=== PATIENT | male | born 1965 ===

== ENCOUNTER 2022-10-10 12:10 | Outpatient (REF) | payer MEDICARE, MEDICAID, SELFPAY ==
[2022-10-10 15:08] LABS: Alanine Aminotransferase 10 U/L (0-40); Albumin Level 4.3 g/dL (3.5-5.0); Alkaline Phosphatase 106 U/L (39-117); Anion Gap 14 (12-20); Aspartate Amino Transferase 13 U/L (5-37); Bilirubin Total 0.3 mg/dL (0.0-1.0); Blood Urea Nitrogen 7 mg/dL (9-16); Calcium 9.6 mg/dL (8.4-10.2); Carbon Dioxide 24 mmol/L (22-29); Chloride 104 mmol/L (96-108); Cholesterol 186 mg/dL; Estimated Glomerular Filt Rate > 60; Glucose Random 188 mg/dL (60-115); HDL Cholesterol 36 mg/dL; LDL Cholesterol Calculated 121 mg/dl; Potassium 4.5 mmol/L (3.3-5.1); Sodium 137 mmol/L (135-145); Total Protein 7.7 g/dL (6.5-8.0); Triglycerides 146 mg/dL
== END 2022-10-10 12:11 | disposition home or self-care (01) ==
LOC: HO.HHCL 12:10
PROVIDERS: Visit Provider Registered Nurse
DX: E78.5 Hyperlipidemia, unspecified (principal); E11.69 Type 2 diabetes mellitus with other specified complication; Z79.4 Long term (current) use of insulin
CPT/HCPCS: 36415; 80053; 80061

== ENCOUNTER 2023-05-14 14:11 | Outpatient (REF) | payer MEDICARE, MEDICAID, SELFPAY ==
[2023-05-14 16:29] LABS: Lithium 0.47 mmol/L (0.60-1.20)
[2023-05-14 16:33] LABS: Blood Urea Nitrogen 7 mg/dL (9-16); Estimated Glomerular Filt Rate > 60
[2023-05-14 16:51] LABS: TSH reflex Free T4 2.21 uIU/mL (0.32-4.0)
== END 2023-05-14 14:12 | disposition home or self-care (01) ==
LOC: HO.HHCL 14:11
PROVIDERS: Visit Provider Nurse Practitioner Family
DX: F31.9 Bipolar disorder, unspecified (principal)
CPT/HCPCS: 36415; 80178; 82565; 84443; 84520

== ENCOUNTER 2023-12-28 12:54 | Outpatient (REF) | payer MEDICARE, MEDICAID, SELFPAY ==
[2023-12-28 16:46] LABS: Hematocrit 37.7 % (42.0-52.0); Hemoglobin 12.5 g/dl (14.0-18.0); Mean Corpuscular HGB Conc 33.2 g/dl (31.0-36.0); Mean Corpuscular Hemoglobin 30.2 pg (27.0-33.0); Mean Corpuscular Volume 91.1 fL (80.0-98.0); Mean Platelet Volume 9.2 fL (9.4-12.4); Platelet Count 319 X10*3/uL (160-400); Red Blood Count 4.14 X10*6/uL (4.60-5.80); Red Cell Distribution Width 12.4 % (11.0-16.0); White Blood Count 11.4 X10*3/uL (4.8-10.8)
[2023-12-28 17:12] LABS: Lithium 0.62 mmol/L (0.60-1.20)
[2023-12-28 17:16] LABS: Estimated Average Glucose 148 mg/dL; Hemoglobin A1C 167.3834 umol/L; Hemoglobin A1c % 6.8 % (<6.0); Total Hemoglobin (HGBA1C) 3286.8693 umol/L
[2023-12-28 17:17] LABS: Alanine Aminotransferase 16 U/L (0-40); Albumin Level 4.3 g/dL (3.5-5.0); Alkaline Phosphatase 113 U/L (39-117); Anion Gap 11 (12-20); Aspartate Amino Transferase 38 U/L (5-37); Bilirubin Total 0.5 mg/dL (0.0-1.0); Blood Urea Nitrogen 11 mg/dL (9-16); Calcium 9.3 mg/dL (8.4-10.2); Carbon Dioxide 25 mmol/L (22-29); Chloride 103 mmol/L (96-108); Cholesterol 201 mg/dL (<200); Estimated Glomerular Filt Rate > 60; Glucose Random 238 mg/dL (60-115); HDL Cholesterol 39 mg/dL (>40); LDL Cholesterol Calculated 124 mg/dL (<100); Potassium 4.2 mmol/L (3.3-5.1); Sodium 135 mmol/L (135-145); Total Protein 7.6 g/dL (6.5-8.0); Triglycerides 192 mg/dL (<150)
[2023-12-28 17:20] LABS: TSH reflex Free T4 1.18 uIU/mL (0.32-4.0)
[2023-12-28 17:36] LABS: Folate 8.4 ng/mL (> or = 4.0); Prostate Specific Antigen 1.33 ng/mL (<0.05-4.0); Vitamin B12 352 pg/mL (200-900)
[2023-12-29 03:53] LABS: Syphilis Screen Nonreactive (Nonreactive)
[2023-12-29 04:09] LABS: HBc Num1 4.09 S/CO (0.00-0.79); HBsAGNum1 0.46 S/CO (0.00-0.99); Hepatitis B Surface Antigen Negative (Negative)
[2023-12-29 04:40] LABS: HIV AB/AG Nonreactive (Nonreactive); HIV Num 1 0.05 S/CO (0.00-0.99); ~HepC Num1 10.86 S/CO (0.00-0.79); ~Hepatitis C Antibody Reactive (Nonreactive)
[2023-12-29 10:55] LABS: HBS Num1 65.37 mIU/mL (0-7.99); ~Hepatitis B Surface Antibody REACTIVE (Nonreactive)
[2023-12-29 11:13] LABS: HBc Num2 4.14 S/CO; HBc Num3 4.14 S/CO; Hepatitis B Core Antibody Reactive (Nonreactive)
[2023-12-31 05:53] LABS: HCV Log PCR <1.18 NOT DETECTED Log IU/mL (NOT DETECTED); HepC Viral Load <15 NOT DETECTED IU/mL (NOT DETECTED)
== END 2023-12-28 12:55 | disposition home or self-care (01) ==
LOC: HO.HHCL 12:54
PROVIDERS: Visit Provider Student in an Organized Health Care Education/Training Program
DX: Z00.00 Encounter for general adult medical examination without abnormal findings (principal); Z11.59 Encounter for screening for other viral diseases; F31.9 Bipolar disorder, unspecified; Z12.5 Encounter for screening for malignant neoplasm of prostate; Z13.1 Encounter for screening for diabetes mellitus; Z72.89 Other problems related to lifestyle
CPT/HCPCS: 36415; 80053; 80061; 80178; 82607; 82746; 83036; 84153; 84443; 85027; 86704; 86706; 86780; 86803; 87340; 87389; 87522

== ENCOUNTER 2024-08-15 11:54 | Outpatient (REF) | payer MEDICARE, MEDICAID, SELFPAY ==
[2024-08-15 12:30] LABS: Hematocrit 38.9 % (42.0-52.0); Hemoglobin 13.4 g/dl (14.0-18.0); Mean Corpuscular HGB Conc 34.4 g/dl (31.0-36.0); Mean Corpuscular Hemoglobin 30.7 pg (27.0-33.0); Mean Corpuscular Volume 89.2 fL (80.0-98.0); Mean Platelet Volume 8.8 fL (9.4-12.4); Platelet Count 343 X10*3/uL (160-400); Red Blood Count 4.36 X10*6/uL (4.60-5.80); Red Cell Distribution Width 12.3 % (11.0-16.0); White Blood Count 11.5 X10*3/uL (4.8-10.8)
[2024-08-15 13:02] LABS: Alanine Aminotransferase 13 U/L (0-40); Albumin Level 4.5 g/dL (3.5-5.0); Alkaline Phosphatase 110 U/L (39-117); Anion Gap 11 (12-20); Aspartate Amino Transferase 18 U/L (5-37); Bilirubin Total 0.4 mg/dL (0.0-1.0); Blood Urea Nitrogen 7 mg/dL (9-16); Calcium 9.5 mg/dL (8.4-10.2); Carbon Dioxide 28 mmol/L (22-29); Chloride 104 mmol/L (96-108); Cholesterol 190 mg/dL (<200); Estimated Glomerular Filt Rate > 60; Glucose Random 179 mg/dL (60-115); HDL Cholesterol 31 mg/dL (>40); Iron 91 mcg/dL (45-160); LDL Cholesterol Calculated 125 mg/dL (<100); Percent Iron Saturation 39 % (15-50); Potassium 4.3 mmol/L (3.3-5.1); Sodium 139 mmol/L (135-145); Total Iron Binding Capacity 233 mcg/dL (228-428); Total Protein 7.8 g/dL (6.5-8.0); Triglycerides 173 mg/dL (<150); Unsaturated Iron Binding 142 ug/dL
[2024-08-15 13:17] LABS: Ferritin 251 ng/mL (20-250)
--- OUTSIDE RECORDS SUMMARY | 2024-08-15 13:43 | XMS_ITS | Clinical Summary ---
Author Organization [facility] Address [address] [place] [address] Care Team Providers Care Information Technology Intern Name Role Phone Unknown Pcp, Non Rmg Primary Care Provider Unava ilable Allergies Active Allergy Reactions Criticality Noted Date Comments Lipitor (per outside medical records) Gabapentin (per outside medical records) Ibuprofen Rash (per outside medical records) Penicillins Anaphylaxis High 08/22/2013 Medications * This document contains information received from the source organization and may not represent a complete record from that organization. Omeprazole 20 MG Tablet Delayed Response 1 TABLET DAILY Active Morphine Sulfate ER 15 MG Tab CR 1 TABLET EVERY 8 TO 12 HOURS NEEDED Active Simvastatin 20 MG Tab 1 TABLET DAILY Active Hydrocodone-Acet aminophen 10-325 MG Tab 1 TABLET EVERY 4 HOURS NEEDED Active Cyclobenzaprine HCl 10 MG TabIndications:C hronic back pain 1 TABLET 3 TIMES DAILY prn 90 Tab 08/22/2013 Active Ringo Carbonate 300 MG TabIndications:B ipolar II disorder (HCC) 2 TABLET 2 TIMES DAILY 90 Tab 0 08/22/2013 Active ALPRAZolam 1 MG TabIndications:A nxiety 1 TABLET 2 TIMES DAILY prn 60 Tab 0 08/22/2013 Active Lamotrigine 150 MG TabIndications:B ipolar II disorder (HCC) 1 TABLET TWICE DAILY 60 Tab 0 08/22/2013 Active Active Problems Problem Noted Date Diagnosed Date Degenerative disc disease Overview (08/23/2013): Patient reports long history of pain and is currently taking narcotics for this pain. He was prescribed Arabella at a pain clinic. I discussed with patient at this time without previous records and current history of marijuana use. We will not prescribe narcotics at this time. He has requested referral to a pain clinic which I have ordered and he refuses pain management urine today. Gastroesophageal reflux disease Overview (07/10/2020): Hepatitis C Overview (08/23/2013): Followed at [facility] Hyperlipidemia Bipolar affective Mood disorder History of substance abuse Overview (08/23/2013): History of heroin use last reported use 1989 Diabetes mellitus Overview (08/23/2013): Currently on Lantus 40 units twice a day. I ordered labs today Immunizations Immunization Administration Dates Next Due Hep A (adult) 08/11/2013 Hep B (adult) 08/11/2013 Family History Medical History Relation Name Comments Diabetes Brother 2 Arthritis/Joint disorder Father Diabetes Father Arthritis/Joint disorder Mother Diabetes Mother Diabetes Other 1 Grandparents Diabetes Other 2 Uncles Cancer (?Type) Other 3 throat - gran dfather Cancer - Breast Other 4 Aunt Hypertension Other 5 some family mem bers Heart Disorder Other 6 some family m embers Stroke Other 7 some family mem bers Arthritis/Joint disorder Other 8 gra ndparent Relation Name Status Comments Brother 1 Alive Brother 2 Daughter 1 Alive Daughter 2 Alive Father Alive Mother Alive Other 1 Other 2 Other 3 Other 4 Other 5 Other 6 Other 7 Other 8 Social History Tobacco Use Types Packs/Day Years Used Date Smoking Tobacco: Every Day Alcohol Use Standard Drinks/Week Comments Yes 0 (1 standard drink = 0.6 oz pur e alcohol) occasional Sex and Gender Information Value Date Recorded Sex Assigned at Not on file Legal Sex Male 9:54 PM EDT Gender Identity Not on file Sexual Orientation Not on file Last Filed Vital Signs Vital Sign Reading Time Taken Comments Blood Pressure 123/83 08/22/2013 2:02 PM EDT Pulse 90 08/22/2013 2:02 PM EDT Temperature - - Respiratory Rate - - Oxygen Saturation - - Inhaled Oxygen Concentration - - Weight 110 kg (242 lb) 08/22/2013 2:02 PM EDT Height - - Body Mass Index - - Plan of Treatment Health Maintenance Due Date Last Done Comments DTaP/Tdap/Td (1 - Tdap) 1982 Eye/Retina Exam 1982 Hep B (2 of 3 - 19+ 3-dose series) 09/08/2013 08/11/2013 Pneumococcal 50+ years (1 of 1 - PCV) 2014 Zoster (Shingrix) (1 of 2) 2014 GFR 09/05/2014 09/05/2013 LDL Cholesterol 09/05/2014 09/05/2013 Microalbumin 09/05/2014 09/05/2013 COVID-19 Vaccine ( - 2023-2 5 season) 2023 Influenza (Season Ended) 2024 RSV (1 - 1-dose 75+ series) 05/19/2039 Hep A Aged Out 08/11/2013 No longer eligi ble based on patient's age to complete this topic Hepatitis C Screening Completed 09/05/2013 HPV Vaccine Aged Out No longer eligi ble based on patient's age to complete this topic Hib Aged Out No longer eligi ble based on patient's age to complete this topic Meningococcal ACWY Aged Out No longer eligible based on patient's age to complete this topic Zoster (Zostavax) Discontinued Goals Goal Patient Goal Type Associated Problems Recent Progress Patient-Stated? Author Quit smoking / using tobacco Lifestyle No Melinda Ocampo - Inactive HEMOGLOBIN A1C % < 7 Result Component 7.1( 4 8:39 AM EDT) No Melinda Ocampo - Inactive Procedures * Due to [place] Simpler law, this organization might not be sharing negative HIV tests. Procedure Name Priority Date/Time Associated Diagnosis Comments BASIC METABOLIC PANEL WITH (GFR) Routine 09/05/2013 8:39 AM EDT Routine history and physical examination of adult HEPATITIS PANEL, ACUTE W/REFLEX Routine 09/05/2013 8:39 AM EDT Viral hepatitis C ALBUMIN (MICROALBUMIN), RANDOM URINE, WITH CREATININE Routine 09/05/2013 8:39 AM EDT Type 2 diabetes mellitus LIPID PANEL WITH REFLEX TO DIRECT LDL Routine 09/05/2013 8:39 AM EDT Screening for hyperlipidemia from Last 3 Months or Most Recently Relevant to Health Maintenance Results * Due to [place] Simpler law, this organization might not be sharing negative HIV tests. * ALBUMIN (MICROALBUMIN), RANDOM URINE, WITH CREATININE (09/05/2013 8:39 AM EDT) Creatinine (Urine) 145 20 - 370 mg/dL [facility] Comment:{CREATININE, RANDOM URINE {[id number]) Albumin (Urine) 0.5 mg/dL [facility] Comment: {MICROALBUMIN {[id number]) Reference Range Not established Albumin/Creatinine (Urine) 3 <30 mcg/mg creat [facility] Comment: {MICROALBUMIN/CREATININE RATIO, RANDOM URINE {[id number]) The ADA defines abnormalities in albumin excretion as follows: Category ? Result (mcg/mg creatinine) Normal ?<30 Microalbuminuria ? 30-299 Clinical albuminuria ?? > OR = 300 The ADA recommends that at least two of three specimens collected within a 3-6 month period be abnormal before considering a patient to be within a diagnostic category. 09/05/2013 8:39 AM EDT 09/05/2013 10:22 PM EDT Narrative Resulting Agency Comment [id number] Dana Romo NP LABORATORY Final Result Performing Organization Address City/State/[facility] Co de Phone Number [facility] [address] [place] [address] * (ABNORMAL) HEPATITIS PANEL, ACUTE W/REFLEX (09/05/2013 8:39 AM EDT) Hepatitis A virus Ab.IgM NON-REACT CORNELL NON-REACT CORNELL [facility] Comment:{HEPATITIS A IGM {[id number]) Hepatitis B virus surface Ag NON-REACT CORNELL NON-REACT CORNELL [facility] Comment:{HEPATITIS B SURFACE ANTIGEN {[id number]) Hepatitis B virus core Ab.IgM NON-REACT CORNELL NON-REACT CORNELL [facility] Comment:{HEPATITIS B CORE AN TIBODY (IGM) {[id number]) Hepatitis C virus Ab REACTIVE( A) NON-REACT CORNELL [facility] Comment:{HEPATITIS C ANTIBOD Y {[id number]) Hepatitis C virus Ab Signal/Cutoff 27.90(H) <1.00 [facility] Comment: {SIGNAL TO CUT-OFF {[id number]) After a positive Hepatitis C antibody test, an FDA-approved HCV LIZZ (also referred to as an HCV RNA test ) should be used to identify HCV infection. A sample with a high S/CO ratio will repeat as positive using a different antibody detection methodology 95% of the time or greater. (CDC MMWR No. RR-3,2002). Additional antibody testing is not recommended. 09/05/2013 8:39 AM EDT 09/05/2013 10:22 PM EDT Narrative Resulting Agency Comment [id number] Dana Romo NP LABORATORY Final Result [facility] [address] [place] [address] * (ABNORMAL) LIPID PANEL WITH REFLEX TO DIRECT LDL (09/05/2013 8:39 AM EDT) Cholesterol 206(H) 125 - 200 mg/dL [facility] Comment:{CHOLESTEROL, TOTAL {[id number]) HDL Cholesterol 32(L) > OR = 40 mg/dL [facility] Comment:{HDL CHOLESTEROL {[id number]) Triglyceride 225(H) <150 mg/dL [facility] Comment:{TRIGLYCERIDES {[id number]) LDL Cholesterol 129 <130 mg/dL (calc) [facility] Comment: {LDL-CHOLESTEROL {[id number]) Desirable range <100 mg/dL for patients with CHD or diabetes and <70 mg/dL for diabetic patients with known heart disease. CHOL/HDL Ratio 6.4(H) < OR = 5.0 (calc) [facility] Comment:{CHOL/HDLC RATIO {[id number]) Cholesterol Non-HDL 174(H) mg/dL (calc) [facility] Comment: {NON HDL CHOLESTEROL {[id number]) Target for non-HDL cholesterol is 30 mg/dL higher than LDL cholesterol target. 09/05/2013 8:39 AM EDT 09/05/2013 10:22 PM EDT Narrative Resulting Agency Comment [id number] Dana Romo POOL PLAYER LABORATORY Final Result [facility] [address] [place] [address] * (ABNORMAL) BASIC METABOLIC PANEL WITH (GFR) (09/05/2013 8:39 AM EDT) Glucose 125(H) 65 - 99 mg/dL [facility] Comment: {GLUCOSE {[id number]) ? Fasting reference interval Urea Nitrogen Blood (BUN) 8 7 - 25 mg/dL [facility] Comment:{UREA NITROGEN (BUN) {[id number]) Creatinine 0.87 0.60 - 1.35 mg/dL [facility] Comment:{CREATININE {[id number]) GFR 101 > OR = 60 mL/min/1. 73m2 [facility] Comment:{eGFR NON-AFR. AMERI CAN {[id number]) GFR () 117 > OR = 60 mL/min/1. 73m2 [facility] Comment:{eGFR AMERIC AN {[id number]) BUN/Creatinine Ratio NOT APPLICABLE 6 - 22 (calc) [facility] Comment:{BUN/CREATININE RATI O {[id number]) Sodium 140 135 - 146 mmol/L [facility] Comment:{SODIUM {[id number]) Potassium 4.3 3.5 - 5.3 mmol/L [facility] Comment:{POTASSIUM {[id number]) Chloride 103 98 - 110 mmol/L [facility] Comment:{CHLORIDE {[id number]) Carbon dioxide 26 19 - 30 mmol/L [facility] Comment:{CARBON DIOXIDE {[id number]) Calcium 9.5 8.6 - 10.3 mg/dL [facility] Comment:{CALCIUM {[id number]) 09/05/2013 8:39 AM EDT 09/05/2013 10:22 PM EDT Narrative [facility] - 09/06/2013 1:00 AM EDT Please note that this estimated GFR does not include an adjustment for the patient's height or weight, and can therefore, be viewed as reliable only for patients with heights between 60 and 72 . More precise quantification using a 24-hour urine sample or height-based algorithm is recommended for patients outside of this range of height and for those individuals with more precise needs for GFR calculation. Resulting Agency Comment [id number] Dana Romo NP LABORATORY Final Result [facility] [address] [place] [address] from Last 3 Months or Most Recently Relevant to Health Maintenance Care Teams Information Technology Intern Relationship Specialty Start Date End Date Unknown Pcp, Non Rmg PCP - General 12/08/13
[2024-08-18 18:22] LABS: Lamotrigine Lamictal 8.1 mcg/mL (2.5-15.0)
== END 2024-08-15 11:55 | disposition home or self-care (01) ==
LOC: HO.LAB 11:54
PROVIDERS: PCP Student in an Organized Health Care Education/Training Program; Visit Provider Student in an Organized Health Care Education/Training Program
DX: E11.69 Type 2 diabetes mellitus with other specified complication (principal); Z79.4 Long term (current) use of insulin; F31.9 Bipolar disorder, unspecified; Z79.899 Other long term (current) drug therapy
CPT/HCPCS: 36415; 80053; 80061; 80175; 80178; 82728; 83540; 85027

== ENCOUNTER 2024-08-26 16:17 | Outpatient (REF) | payer MEDICARE, MEDICAID, SELFPAY ==
--- OUTSIDE RECORDS SUMMARY | 2024-08-26 16:20 | XMS_ITS | Encounter Summary ---
Author Organization [employer] [employer] Address [address] [place] [address] Care Team Providers Care Packing And Wrapping Supervisor Name Role Phone Carey Hawk MD Primary Care Pro vider Reason for Visit * Reason Onset Date Comments Med Refill 08/19/2024 Encounter Details Date Type Department Care Team ([facility] st Contact Info) Description 08/19/2024 Refill [facility] MEDICINE [address], [place] [phone] Meredith Witt MD [address] [place] [address] Uncomplicated opioid dependence (CMS/HCC) Social History Tobacco Use Types Packs/Day Years Used Date Smoking Tobacco: Every Day Cigarettes Smokeless Tobacco: Never Comments:Started tobacco smo wendie 18 y of age ,never stopped , 1 PQT a day - smoking for 40 y PQT calc a year 39 Alcohol Use Standard Drinks/Week Comments Never 0 (1 standard drink = 0.6 oz pur e alcohol) Depression Answer Date Recorded Patient Health Questionnaire-9 Score 7 06/20/2024 Patient Health Questionnaire-9 Score 7 06/20/2024 Last PHQ-9: Questionnaire Data Not on file 0 06/20/2024 Housing Stability Answer Date Recorded What is your housing situation today? I have debra garces 10/14/[address] you li ve. Do you have problems with any of the following? None of the above 10/14/2023 Food Insecurity Answer Date Recorded Within the past 12 months, y ou worried that your food would run out before you got money to buy more: Sometimes True 2023 Within the past 12 months,th e food you bought just didn't last and you didn't have enough money to get more: Sometimes True 10/14/2023 Transportation Answer Date Recorded In the past 12 months, has l ack of transportation kept you from medical appts, meetings, work or from getting things needed for daily living? No 10/14/2023 Utilities Answer Date Recorded In the past 12 months, has t he electric, gas, oil or water company threatened to shut off services in your home? No 10/14/2023 Depression Answer Date Recorded Patient Health Questionnaire-2 Score 4 06/20/2024 Internet Access Answer Date Recorded Internet Access Q1 Yes 11/09/2023 Internet Access Q2 Not on file 11/09/2023 Sex and Gender Information Value Date Recorded Sex Assigned at Male 01/06/2022 10:37 AM EDT Legal Sex Male 10:37 AM EDT Gender Identity Male 01/06/2022 10:37 AM EDT Sexual Orientation Straight 01/06/2022 10 :37 AM EDT documented as of this encounter Plan of Treatment Upcoming Encounters Date Type Department Care Team (Late st Contact Info) Description 09/01/2024 2:15 PM EDT Office Visit [address] [address] Meredith Witt MD [address] [place] [phone] 10/27/2024 11:00 AM EDT Clinical Support [address] [address] Kyrie Stoddard RN [address] [place] [phone] 11/28/2024 2:00 PM EDT Office Visit [address] [address] Carey Hawk MD [address] [place] [address] [phone] documented as of this encounter Goals Goal Patient Goal Type Associated Problems Recent Progress Patient-Stated? Author Increase coping skills to promote long-term recovery and improve ability to perform daily activities General No Kyrie Stoddard RN documented as of this encounter Visit Diagnoses Diagnosis Uncomplicated opioid dependence (CMS/HCC) documented in this encounter Additional Health Concerns Assessment Noted Time PHQ-9 Depression Total Score: 7 06/21/19 25 3:51 PM EDT documented as of this encounter Care Teams Packing And Wrapping Supervisor Relationship Specialty Start Date End Date Carey Hawk MD [address] [place] [phone] PCP - General Internal Medicine 11/27/22 documented as of this encounter
[2024-08-26 17:01] LABS: Microalbum/Creatinine Ratio Ur 18.5 ug/mg cr (<30)
== END 2024-08-26 16:18 | disposition home or self-care (01) ==
LOC: HO.LNP 16:17
PROVIDERS: Visit Provider Student in an Organized Health Care Education/Training Program
DX: E11.69 Type 2 diabetes mellitus with other specified complication (principal); Z79.4 Long term (current) use of insulin
CPT/HCPCS: 82043; 82570

== ENCOUNTER 2024-10-14 10:11 | Outpatient (AMB) | payer MEDICARE, MEDICAID, SELFPAY ==
--- NOTE | 2024-10-14 07:46 | MHC.OFFVIS ---
Intake Visit Reasons: Current Smoker Allergies bupropion (From Wellbutrin) Adverse Reaction (Verified 10/14/24 10:17) suicidal ibuprofen Adverse Reaction (Verified 10/14/24 10:13) Constipation sertraline (From Zoloft) Adverse Reaction (Verified 10/14/24 10:17) suicidal HPI HPI Current Smoker: Details: Initial visit for this 59yo smoker with a 40PYH. Patient started smoking at age 18 for 41 years at 1ppd. Currently at 1/2ppd. . Occasional marijuana use. Denies second hand smoke exposure. Denies exposure to chemicals or substances like asbestos. . Denies known family history of lung cancer. Denies personal history of cancers. Denies chest CT in last year. . Denies recent travel outside the [place]. Denies recent respiratory illness or recent hospitalization for respiratory issues. Denies testing positive for COVID. Admits receiving COVID Vaccine. . Denies fever, chills, new/worsening cough, hemoptysis, hoarseness or dysphagia. Denies significant chest pain, significant dyspnea or unintentional weight loss. Patient Lung Cancer Screening Questionnaire reviewed with patient by provider. . Shared Decision Making Completed. Patient meets criteria. Discussed in detail with patient, the risk vs benefit of LDCT screening. Patient consents to proceed with scan. Discussed smoking cessation. [facility] Medical History (Updated 10/14/24 @ 10:18 by Yesica Presley PA-C) Hyperlipidemia Type 2 diabetes mellitus treated with insulin Nicotine dependence, cigarettes, uncomplicated Surgical History (Updated 10/14/24 @ 10:10 by Yesica Presley PA-C) History of lumbar discectomy History of fusion of cervical spine History of arthroscopy of left knee History of right knee surgery Social History (Updated 10/14/24 @ 10:18 by Yesica Presley PA-C) Alcohol intake: current Alcohol intake frequency: does not drink Patient Tobacco Use Status: Current everyday Tobacco user Cigarette Packs Per Day: 0.5 Years Smoked: (onset 18yo, 1ppd x 41yrs, now 1/2ppd - 40pyh) Assessment & Plan Assessment & Plan (1) Nicotine dependence, cigarettes, uncomplicated: Comment: (onset 18yo, 1ppd x 41yrs, now 1/2ppd - 40pyh) Code(s): F17.210 - Nicotine dependence, cigarettes, uncomplicated Category: Medical Plan: - SDM visit completed today in office. - Patient meets criteria for LDCT for lung cancer screening purposes and is asymptomatic. - Smoking cessation counseling offered. Patients can always call [phone]. - Will arrange for a LDCT scan of the chest for screening purposes at [facility]. - Risks, benefits, and alternatives were discussed in detail and the patient agrees to proceed. - Risks discussed include but are not limited to: radiation exposure, anxiety during testing and while awaiting results, false negatives, false positives and possibility of additional intervention such as further imaging or surgical procedures for benign disease. - Benefits are obviously detection of lung cancer at an early stage which can lead to improved outcomes. - Discussed the importance of screening program compliance with adherence to yearly LDCT scan as scheduled - or sooner interval scans for personalized screening regimen. - Discussed follow up plan. Our office will send a letter discussing results and if needed set up phone call and office visit based on CT findings. - Patient educated on results categorization and the management decisions for suspicious findings potentially found on the screening LDCT scan. Any patient with a Lung RADS score of 3 or 4 will be reviewed by a multidisciplinary team at [facility] to form a plan of action in regards to scan findings. - If further work up is warranted for a suspicious lung finding this will be followed by the Lung Cancer Screening program in conjunction with the Thoracic Surgery Department at [facility]. - A copy of the office note and LDCT will be sent to the patient's PCP - as well as documentation on any associated further plans of care. - Incidental findings on LDCT are the PCP's responsibility. These findings are indicated with an S finding on the LDCT Assessment. A note discussing the findings will be sent to the PCP who is then responsible for further management. - All questions answered.? Coding Level of Care Code Lung Cancer Screening G0296 Diagnoses Nicotine dependence, cigarettes, uncomplicated F17.210
--- OUTSIDE RECORDS SUMMARY | 2024-10-14 10:16 | XMS_ITS | Patient Health Record ---
Author Organization [facility] Address [address] [place] [address] Care Team Providers Care Undercollar Maker Name Role Phone Gricelda Lawson Primary Care Provider Butch Almanza Unavailable [phone] Reason For Referral No Information Medications Medication SIG (Take, Route, Frequency, Duration) Notes Start Date End Date Status Lantus Unknown HumaLOG 4 times a day Unknow n lamoTRIgine 150 MG 1 tablet Orally Twic e a day 12/28/2014 Unknown Omeprazole 20 MG 1 tablet Orally Once a day Unknown Phenix Carbonate 300 MG 2 tablet Orally twice a day 12/28/2014 Unknown Suboxone 8-2 MG Sublingual twice a day Unknown Social History Tobacco use other than smoking: Question Answer Notes Are you an other tobacco user? No Problems Problem Type SNOMED Code ICD Code Onset Dates Problem Status W/U Status Risk Notes Problem Ingrowing nail (242737431) Ingrowing nail (L60.0) Active confirmed Plan Of Treatment Pending Test Test Name Order Date [id number] Plate 12/28/2014 [id number] 01/23/2015 Insurance Providers Payer Name Payer Address Payer Phone Subscriber Number Group Number Insured Name Patient Relationship to Insured Coverage Start Date Coverage End Date Medicare [employer] [address] [place] [address] [id number] Kory Lawson Self - patient is the insured 4 Medical (General) History Medical History History ICD Code Anxiety Arthritis Back,Hip,and Knee pain Bipolar disorder Chicken pox Depression Diabetes mellitus Hypercholesterolemia Hepatitis C Reflux Surgical History Surgery Date(Month/Year) back surgery knee surgery, left
--- OUTSIDE RECORDS SUMMARY | 2024-10-14 10:16 | XMS_ITS | Clinical Summary ---
Author Organization [facility] Address [address] [place] [address] Care Team Providers Care Diver Assistant Name Role Phone Unknown Pcp, Non Rmg [...] TIMES DAILY prn 90 Tab 08/22/2013 Active [place] Carbonate 300 MG TabIndications:B ipolar II disorder [...] (07/10/2020): Hepatitis C Overview (08/23/2013): Followed at [facility] Hyperlipidemia Bipolar affective Mood disorder History [...] ( - 2023-2 5 season) 2023 Influenza (#1) 2024 RSV (1 - 1-dose 75+ series) 05/19/2039 Hep A Aged Out 08/11/2013 No longer eligi ble based on patient's age to complete this topic Hepatitis C Screening Completed 09/05/2013 HPV Vaccine (No Doses Required) Completed Hib Aged Out No longer eligi ble [...] [place] - Inactive Procedures * Due to [place] Best Bid law, this organization might not be sharing [...] to Health Maintenance Results * Due to [place] Best Bid law, this organization might not be sharing negative HIV tests. * ALBUMIN (MICROALBUMIN), RANDOM URINE, WITH CREATININE (09/05/2013 8:39 AM EDT) Creatinine (Urine) 145 20 - 370 mg/dL [facility] Comment:{CREATININE, RANDOM URINE {[id number]) Albumin (Urine) 0.5 mg/dL [facility] Comment: {MICROALBUMIN {[id number]) Reference Range Not established Albumin/Creatinine (Urine) 3 <30 mcg/mg creat [facility] Comment: {MICROALBUMIN/CREATININE RATIO, RANDOM URINE {[id number]) The ADA defines abnormalities in albumin excretion as follows: Category Result (mcg/mg creatinine) Normal <30 Microalbuminuria 30-299 Clinical albuminuria > OR = 300 The ADA recommends that at least two of three specimens collected within a 3-6 month period be abnormal before considering a patient to be within a diagnostic category. 09/05/2013 8:39 AM EDT 09/05/2013 10:22 PM EDT Narrative Resulting Agency Comment [id number] Dana Romo NP LABORATORY Final Result Performing Organization Address City/State/[facility] Co de Phone Number [facility] [address] [place] [address] * (ABNORMAL) HEPATITIS PANEL, ACUTE W/REFLEX (09/05/2013 8:39 AM EDT) Pathologist [facility] Hepatitis A virus Ab.IgM NON-REACT CORNELL NON-REACT CORNELL [facility] Comment:{HEPATITIS A IGM {[id number]) Hepatitis B virus surface Ag NON-REACT CORNELL NON-REACT CORNELL [facility] Comment:{HEPATITIS B SURFACE ANTIGEN {[id number]) Hepatitis B virus core Ab.IgM NON-REACT CORNELL NON-REACT CORNELL [facility] Comment:{HEPATITIS B CORE AN TIBODY (IGM) {[id number]) Hepatitis C virus Ab REACTIVE( A) NON-REACT CORNELL [facility] Comment:{HEPATITIS C ANTIBOD Y {[id number]) Hepatitis C virus Ab Signal/Cutoff 27.90(H) <1.00 [facility] Comment: {SIGNAL TO CUT-OFF {[id number]) After a positive Hepatitis C antibody test, an FDA-approved HCV LIZZ (also referred to as an HCV RNA test ) should be used to identify HCV infection. A sample with a high S/CO ratio will repeat as positive using a different antibody detection methodology 95% of the time or greater. ([facility] MMWR No. RR-3,2002). Additional antibody testing is not recommended. 09/05/2013 8:39 AM EDT 09/05/2013 10:22 PM EDT Narrative Resulting Agency Comment [id number] Dana Romo LABORATORY Final Result Performing Organization Address [facility] Co de Phone Number [facility] [address] [place] [phone] * (ABNORMAL) LIPID PANEL WITH REFLEX TO DIRECT LDL (09/05/2013 8:39 AM EDT) Cholesterol 206(H) 125 - 200 mg/dL [facility] Comment:{CHOLESTEROL, TOTAL {[id number]) HDL Cholesterol 32(L) > OR = 40 mg/dL [facility] Comment:{HDL CHOLESTEROL {[id number]) Triglyceride 225(H) <150 mg/dL [facility] Comment:{TRIGLYCERIDES {[id number]) LDL Cholesterol 129 <130 mg/dL (calc) [facility] Comment: {LDL-CHOLESTEROL {[id number]) Desirable range <100 mg/dL for patients with CHD or diabetes and <70 mg/dL for diabetic patients with known heart disease. CHOL/HDL Ratio 6.4(H) < OR = 5.0 (calc) [facility] Comment:{CHOL/HDLC RATIO {[id number]) Cholesterol Non-HDL 174(H) mg/dL (calc) [facility] Comment: {NON HDL CHOLESTEROL {[id number]) Target for non-HDL cholesterol is 30 mg/dL higher than LDL cholesterol target. 09/05/2013 8:39 AM EDT 09/05/2013 10:22 PM EDT Narrative Resulting Agency Comment [id number] Dana [facility] LABORATORY Final Result Performing Organization Address [facility] Co de Phone Number [facility] [address] [place] [address] * (ABNORMAL) BASIC METABOLIC PANEL WITH (GFR) (09/05/2013 8:39 AM EDT) Glucose 125(H) 65 - 99 mg/dL [facility] Comment: {GLUCOSE {[id number]) Fasting reference interval Urea Nitrogen Blood (BUN) 8 7 - 25 mg/dL [facility] Comment:{UREA NITROGEN (BUN) {[id number]) Creatinine 0.87 0.60 - 1.35 mg/dL [facility] Comment:{CREATININE {[id number]) GFR 101 > OR = 60 mL/min/1. 73m2 [facility] Comment:{eGFR NON-AFR. AMERI CAN {[id number]) GFR () 117 > OR = 60 mL/min/1. 73m2 [facility] Comment:{eGFR AMERIC AN {[id number]) BUN/Creatinine Ratio NOT APPLICABLE 6 - (calc) [facility] Comment:{BUN/CREATININE RATI O {[id number]) Sodium 140 135 - 146 mmol/L [facility] Comment:{SODIUM {[id number]) Potassium 4.3 3.5 - 5.3 mmol/L [facility] Comment:{POTASSIUM {[id number]) Chloride 103 98 - 110 mmol/L [facility] Comment:{CHLORIDE {[id number]) Carbon dioxide 26 19 - 30 mmol/L [facility] Comment:{CARBON DIOXIDE {[id number]) Calcium 9.5 8.6 - 10.3 mg/dL [facility] Comment:{CALCIUM {[id number]) 09/05/2013 8:39 AM EDT 09/05/2013 10:22 [...] needs for GFR calculation. Resulting Agency Comment [id number] Dana Romo NP LABORATORY Final Result [facility] [address] [place] [address] from Last 3 Months or Most Recently Relevant to Health Maintenance Care Teams Diver Assistant Relationship Specialty Start Date End Date Unknown Pcp, Non Rmg PCP - General 12/08/13
--- OUTSIDE RECORDS SUMMARY | 2024-10-14 10:16 | XMS_ITS | Encounter Summary ---
Author Organization [employer] Address [address] [place] [address] Care Team Providers Care Broke Man Name Role Phone Carey Hawk MD Primary Care Pro vider Encounter Details Date Type Department Care Team ([facility] st Contact Info) Description 08/15/2024 Results Follow-Up [facility] [address] [place] [address] Carey Hawk MD [address] [place] [address] POCT HGB A1C, POCT Glucose, Cologuard colon cancer screening, Additional followed-up results: 6 Social History Tobacco Use Types Packs/Day Years [...] AM EDT documented as of this encounter Miscellaneous Notes * Result Encounter Note - Carey Humphrey MD - 08/15/2024 9:48 PM EDT Please call patient to advise to come to already scheduled apt with me to go over abnormal labs Thanks documented in this encounter Plan of Treatment Upcoming Encounters Date Type Department Care Team (Late st Contact Info) Description 10/27/2024 11:00 AM EDT Clinical Support [facility] [address] [place] [phone] Kyrie Stoddard RN [address] [place] [phone] 12/22/2024 1:00 PM EDT Office Visit [facility] [address] [place] [phone] Meredith Witt MD [address] [place] [phone] documented as of this encounter Goals Goal Patient Goal Type Associated Problems Recent Progress Patient-Stated? Author Increase coping skills to promote long-term recovery and improve ability to perform daily activities General No Kyrie Stoddard RN documented as of this encounter Visit Diagnoses Not on filedocumented in this encounter Additional Health Concerns Assessment Noted Time PHQ-9 Depression Total Score: 7 06/21/19 25 3:51 PM EDT documented as of this encounter Care Teams Broke Man Relationship Specialty Start Date End Date Carey Hawk MD [address] [place] [phone] PCP - General Internal Medicine 11/27/22 documented as of this encounter
--- OUTSIDE RECORDS SUMMARY | 2024-10-14 10:17 | XMS_ITS | Clinical Summary ---
Author Organization [facility] Address [address] [place] [address] Phone Care Team Providers Care Acoustics Teacher Name Role Phone Physician, Pcp Unknown Primary Care Provider Caterina vailable Social History Tobacco Use Types Packs/Day Years Used Date Smoking Tobacco: Never Assessed Sex and Gender Information Value Date Recorded Sex Assigned at Not on file Legal Sex Male 4:35 AM EST Gender Identity Not on file Sexual Orientation Not on file Plan of Treatment Upcoming Encounters Date Type Department Care Team ([facility] Contact Info) Description 11/29/2024 2:00 PM EDT Consult Orthopedic Surgery - [place] [phone] [phone] Gustavo Eagle, DPM [address] [address] Health Maintenance Due Date Last Done Comments Diabetes: Annual GFR (Glomer ular Filtration Rate) 1964 Diabetes: Annual Foot Exam 1974 Diabetes: Annual Retina Eye Exam 1974 DTaP,Tdap,and Td Vaccines (1 - Tdap) 05/19/1983 Pneumococcal Vaccine: 50+ Ye ars (1 of 2 - PCV) 05/19/1983 Zoster Vaccines (1 of 2) 2014 COVID-19 Vaccine ( - 2023-2 5 season) 2023 Depression Screening 03/09/2024 Cholesterol Screening (Lipid Panel) 08/31/2024 Colorectal Cancer Screening: Colonoscopy 08/31/2024 Diabetes: Annual Urine Albumin-Creatinine Ratio (uACR) 08/31/2024 Diabetes: Blood Sugar Contro l Test (HGBA1C) 08/31/2024 HIV Screening 08/31/2024 Hepatitis C Screening 08/31/2024 Medicare Annual Wellness Visit 08/31/2024 Social Influencers of Health Screening 08/31/2024 Influenza Vaccine (#1) 2024 RSV Immunization Adult Patie nts (1 - 1-dose 75+ series) 05/19/2039 HIB Vaccines Aged Out No longer eligi ble based on patient's age to complete this topic HPV Vaccines Aged Out No longer eligi ble based on patient's age to complete this topic Hepatitis A Vaccines Aged Out No long er eligible based on patient's age to complete this topic Hepatitis B Vaccines Aged Out No long er eligible based on patient's age to complete this topic IPV Vaccines Aged Out No longer eligi ble based on patient's age to complete this topic MMR Vaccines Aged Out No longer eligi ble based on patient's age to complete this topic Meningococcal ACWY Vaccine Aged Out N o longer eligible based on patient's age to complete this topic Meningococcal B Vaccine Aged Out No l onger eligible based on patient's age to complete this topic RSV Immunization Patients Un thuy 20 months Aged Out No longer eligible b ased on patient's age to complete this topic Varicella Vaccines Aged Out No longer eligible based on patient's age to complete this topic Insurance MEDICARE MEDICAID - [place] Care Teams Acoustics Teacher Relationship Specialty Start Date End Date Physician, Pcp Unknown PCP - General 08/30/24
== END 2024-10-14 10:45 | disposition home or self-care (01) ==
LOC: HO.HPS 10:13
PROVIDERS: PCP Student in an Organized Health Care Education/Training Program; Referring Provider Student in an Organized Health Care Education/Training Program; Visit Provider Physician Assistant Medical
DX: F17.210 Nicotine dependence, cigarettes, uncomplicated (principal)
CPT/HCPCS: G0296

== ENCOUNTER 2024-10-14 10:18 | Outpatient (REF) | payer MEDICARE, MEDICAID, SELFPAY ==
--- NOTE | ~2024-10-14 | CT_ITS ---
CLINICAL HISTORY: F17.210 - Nicotine dependence, cigarettes, uncomplicated CT lung cancer screening (LDCT) Comparison: None provided Technique: Axial CT images of the chest using low-dose technique. Referring provider counseled the patient on shared decision-making for LDCT screening. Additional counseling was provided on smoking cessation. Effective radiation dose total: DLP 54 mGycm, CTDIvol 1.5 mGy. Findings: Smoking-related lung changes. Mild scattered foci subpleural increased reticular markings noted bilaterally. No lung nodule. Coronary artery calcifications: Moderate Limited upper abdomen: Unremarkable Partially evaluated lower cervical spine hardware. Impression: LungRADS 1: Negative exam. Continue annual screening with low dose Chest CT in 12 months. ##L1## Category 1: Normal; continue annual screening Category 2: Benign appearance or behavior, continue annual screening Category 3: Probably benign, [address] recommended Category 4A: Suspicious, [address] recommended; may consider PET/CT Category 4B: Suspicious, Additional diagnostics and/or tissue sampling recommended Category 4X: Suspicious, Additional diagnostics and/or tissue sampling recommended Category 0: Recalls (incomplete screen due to Incomplete coverage, Noise, Respiratory motion, Expiration, Obscured by acute abnormality) This document has been electronically signed by: Daisha Schaefer MD on 10/14/2024 12:39:09
== END 2024-10-14 10:19 | disposition home or self-care (01) ==
LOC: HO.CT 10:18
PROVIDERS: PCP Student in an Organized Health Care Education/Training Program; Visit Provider Physician Assistant Medical
DX: F17.210 Nicotine dependence, cigarettes, uncomplicated (principal)
CPT/HCPCS: 71271; G0296

== ENCOUNTER 2025-02-16 10:46 | Outpatient (REF) | payer MEDICARE, MEDICAID, SELFPAY ==
[2025-02-16 14:09] LABS: MANUAL DIFF FLAG NO
[2025-02-16 14:12] LABS: Hematocrit 39.6 % (42.0-52.0); Hemoglobin 13.1 g/dl (14.0-18.0); Imm Gran Abs Auto 0.02 X10*3/uL (0.00-0.03); Imm Gran Pct Auto 0.2 % (0.0-0.4); Lymphocytes Absolute Auto 1.9 X10*3/uL (1.2-4.9); Mean Corpuscular HGB Conc 33.1 g/dl (31.0-36.0); Mean Corpuscular Hemoglobin 30.3 pg (27.0-33.0); Mean Corpuscular Volume 91.5 fL (80.0-98.0); NRBC Abs Auto 0.000 X10*3/uL (0.0-0.012); NRBC Pct Auto 0.0 /100WBC (0.0-0.2); Platelet Count 299 X10*3/uL (160-400); Red Blood Count 4.33 X10*6/uL (4.60-5.80); White Blood Count 9.8 X10*3/uL (4.8-10.8)
[2025-02-16 14:32] LABS: Alanine Aminotransferase 19 U/L (0-40); Albumin Level 4.3 g/dL (3.5-5.0); Alkaline Phosphatase 106 U/L (39-117); Anion Gap 10 (12-20); Aspartate Amino Transferase 22 U/L (5-37); Blood Urea Nitrogen 9 mg/dL (9-16); Calcium 9.2 mg/dL (8.4-10.2); Carbon Dioxide 26 mmol/L (22-29); Chloride 104 mmol/L (96-108); Cholesterol 143 mg/dL (<200); Estimated Glomerular Filt Rate > 60; HDL Cholesterol 36 mg/dL (>40); Potassium 4.4 mmol/L (3.3-5.1); Sodium 136 mmol/L (135-145); Total Protein 7.4 g/dL (6.5-8.0); Triglycerides 159 mg/dL (<150)
[2025-02-16 15:06] LABS: Folate 9.1 ng/mL (> or = 4.0); Prostate Specific Antigen 1.22 ng/mL (<0.05-4.0); Vitamin B12 375 pg/mL (200-900)
[2025-02-17 07:52] LABS: HBsAGNum1 0.38 S/CO (0.00-0.99); HIV Num 1 0.07 S/CO (0.00-0.99); Hepatitis B Surface Antigen Negative (Negative); ~HepC Num1 10.17 S/CO (0.00-0.79); ~Hepatitis C Antibody Reactive (Nonreactive)
[2025-02-17 08:08] LABS: Syphilis Screen Nonreactive (Nonreactive)
[2025-02-17 16:13] LABS: Iron 120 mcg/dL (45-160); Percent Iron Saturation 52 % (15-50); Total Iron Binding Capacity 233 mcg/dL (228-428); Unsaturated Iron Binding 113 ug/dL
[2025-02-17 16:22] LABS: Ferritin 162 ng/mL (20-250)
[2025-02-20 21:38] LABS: Lamotrigine Lamictal 7.9 mcg/mL (2.5-15.0)
[2025-02-20 22:14] LABS: HCV Log PCR <1.18 NOT DETECTED Log IU/mL (NOT DETECTED); HepC Viral Load <15 NOT DETECTED IU/mL (NOT DETECTED)
== END 2025-02-16 10:47 | disposition home or self-care (01) ==
LOC: HO.HHCL 10:46
PROVIDERS: PCP Student in an Organized Health Care Education/Training Program; Visit Provider Student in an Organized Health Care Education/Training Program
DX: Z00.00 Encounter for general adult medical examination without abnormal findings (principal); F31.9 Bipolar disorder, unspecified; Z12.5 Encounter for screening for malignant neoplasm of prostate; Z13.6 Encounter for screening for cardiovascular disorders; Z13.1 Encounter for screening for diabetes mellitus; Z11.4 Encounter for screening for human immunodeficiency virus [HIV]; Z11.59 Encounter for screening for other viral diseases; A64 Unspecified sexually transmitted disease; Z72.89 Other problems related to lifestyle
CPT/HCPCS: 36415; 80053; 80061; 80175; 82607; 82728; 82746; 83036; 83540; 84153; 84443; 85025; 86780; 86803; 87340; 87389; 87522